=== PATIENT | male | born 1980 | race Caucasian/White ===

== ENCOUNTER 2021-12-27 07:55 | Emergency (ER) | payer BC ==
[~2021-12-27] VITALS: Ht 170.2 cm; Wt 122.0 kg
[2021-12-27 08:03] VITALS: BP 142/100
[2021-12-27] MEDS ORDERED: HYDROcodone/APAP 5/325MG 1 TAB TABLET PO ONE (08:15)
[2021-12-27] MEDS ORDERED: ONDANSETRON ODT 4 MG TAB.RAPDIS. PO ONE (08:15)
--- NOTE | 2021-12-27 08:57 | RAD ---
Right shoulder 3 views 12/27/2021. Reason for exam: Pain. No history of injury is given. No fracture or dislocation is seen. There is no apparent joint narrowing or destructive process. IMPRESSION: No acute abnormality. AP view of the chest 12/27/2021. FINDINGS: Depth of inspiration is fairly shallow. No infiltrate or effusion is seen. Heart size is no rmal. IMPRESSION: No acute abnormality. Electronically signed by: Gentry Copeland Jr., MD (12/27/2021 8:54 AM) [id number]
[2021-12-27] MEDS ORDERED: CYCL5TAB PO (09:09)
[2021-12-27] MEDS ORDERED: IBUP-1060 PO (09:09)
--- NOTE | 2021-12-27 09:10 | PHYS DOC ---
Past Medical History Past Surgical History: No Surgical History Adult General Chief Complaint Chief Complaint: SHOULDER INJURY HPI HPI Patient is a 41 year old male with right shoulder pain that started this morning when patient woke up. He states that the pain has been a constant ache at the posterior aspect of the shoulder and running over the scapula. He has pain with range of motion, particularly with trying to attempt to raise his arm above his head. No weakness numbness or tingling. He does not have any history of trauma or overuse. He denies any chest pain or shortness of breath. No fever. Review of Systems Review of Systems Constitutional: Denies fever Eyes: Denies change in visual acuity or eye pain HENT: Denies sore throat Respiratory: Denies shortness of breath Cardiovascular: Denies chest pain GI: Denies abd pain : Denies dysuria Musculoskeletal: Denies back or extremity injury Integument: Denies rash or skin lesions Neurologic: Denies headache, focal weakness or sensory changes All other systems were reviewed and found to be within normal limits, except as documented in this note. Current Medications Current Medications Current Medications Medications (Trade) Dose Ordered Sig/Dary Start Time Stop Time Status Last Admin Dose Admin Acetaminophen/ Hydrocodone Bitart (Lortab 5/325) 2 tab 1X ONCE 12/27/21 08:15 12/27/21 08:26 DC 12/27/21 08:15 2 TAB Ondansetron HCl (Zofran Odt) 4 mg 1X ONCE 12/27/21 08:15 12/27/21 08:24 DC 12/27/21 08:15 4 MG Allergies Allergies Allergies Coded Allergies Type Severity Reaction Last Updated Verified Penicillins Allergy Intermediate 12/27/21 Yes aspirin Allergy Unknown 12/27/21 Yes morphine Allergy Unknown 12/27/21 Yes Physical Exam Physical Exam Constitutional: Well developed, well nourished, no acute distress, non-toxic appearance. HENT: Normocephalic, atraumatic, bilateral external ears normal, mucosa moist, nose normal. Eyes: EOMI, conjunctiva normal, no discharge. Neck: Normal range of motion, supple, no stridor, no meningeal signs. Cardiovascular: Regular rate and rhythm Lungs & Thorax: Bilateral breath sounds clear to auscultation Abdomen: Soft, no tenderness or obvious masses Skin: Warm, dry, no erythema, no rash. Extremities: No tenderness, no cyanosis, no clubbing, decreased range of motion with abduction and fore flexion of the right shoulder, no edema. Neurologic: Alert and oriented, normal motor function, normal sensory function, no focal deficits noted. Psychologic: Affect normal, judgement normal, mood normal. Current Patient Data Vital Signs Vital Signs Date Time Temp Pulse Resp B/P (MAP) Pulse Ox O2 Delivery O2 Flow Rate FiO2 12/27/21 08:15 Room Air 12/27/21 08:03 98.5 75 15 142/100 (114) 98 98.5 EKG EKG [] Radiology/Procedures Radiology/Procedures [] Impressions: PATIENT: MAI MARTINEZ EACCOUNT: [id number]#: [id number] : 1980 LOCATION: ER AGE: 41 SEX: M EXAM STATUS: REG ER ORD. PHYSICIAN: BITA SALDAÑA MD REASON: pain PROCEDURE: CHEST AP ONLY Right shoulder 3 views 12/27/2021. Reason for exam: Pain. No history of injury is given. No fracture or dislocation is seen. There is no apparent joint narrowing or destructive process. IMPRESSION: No acute abnormality. AP view of the chest 12/27/2021. FINDINGS: Depth of inspiration is fairly shallow. No infiltrate or effusion is seen. Heart size is normal. IMPRESSION: No acute abnormality. Electronically signed by: Alexandra Walter Jr., MD (12/27/2021 8:54 AM) [id number] DICTATED and SIGNED BY: ALEXANDRA WALTER Jr, MD DATE: 12/27/21 [id number] PATIENT: MAI MARTINEZ E ACCOUNT: [id number] : 1980 LOCATION: ER AGE: 41 SEX: M EXAM STATUS: REG ER ORD. PHYSICIAN: BITA SALDAÑA MD REASON: pain PROCEDURE: SHOULDER 2+V RIGHT Right shoulder 3 views 12/27/2021. Reason for exam: Pain. No history of injury is given. No fracture or dislocation is seen. There is no apparent joint narrowing or destructive process. IMPRESSION: No acute abnormality. AP view of the chest 12/27/2021. FINDINGS: Depth of inspiration is fairly shallow. No infiltrate or effusion is seen. Heart size is normal. IMPRESSION: No acute abnormality. Electronically signed by: Alexandra Walter Jr., MD (12/27/2021 8:54 AM) [id number] DICTATED and SIGNED BY: ALEXANDRA WALTER Jr, MD DATE: 12/27/21 [id number] Course & Med Decision Making Course & Med Decision Making Pertinent Labs and Imaging studies reviewed. (See chart for details) [] Is a 41-year-old male with shoulder and scapular pain on the right side without any history of injury or trauma. X-rays of the shoulder as well as AP of the chest were negative for any acute process. Patient will be placed in a sling and instructed to remain off work till Thursday. We will give him a prescription for Motrin and Flexeril, have him follow-up with his primary care physician, return to the emergency department if symptoms become worse or other concerns arise, he is stable for discharge at this time. Dragon Disclaimer Dragon Disclaimer This electronic medical record was generated, in whole or in part, using a voice recognition dictation system. Departure Departure Impression: Primary Impression: Shoulder pain, right Disposition: HOME / SELF CARE / HOMELESS Condition: STABLE Referrals: UNKNOWN PCP NAME (PCP) Patient Instructions: Shoulder Pain Scripts Ibuprofen (IBUPROFEN) 800 Mg Tablet 800 MG PO PRN TID PRN for PAIN, #20 TAB take with food or milk to avoid upsetting stomach Prov: BITA SALDAÑA MD 12/27/21 Cyclobenzaprine Hcl (CYCLOBENZAPRINE HCL) 5 Mg Tablet 5 MG PO PRN TID PRN for PAIN, #15 TAB Prov: BITA SALDAÑA MD 12/27/21 BITA SALDAÑA MD Dec 27, 2021 09:10
== END 2021-12-27 09:34 | disposition home or self-care (01) ==
LOC: ER 07:55
DX: M25.511 Pain in right shoulder (principal); Z88.0 Allergy status to penicillin; Z88.5 Allergy status to narcotic agent; Z88.6 Allergy status to analgesic agent
CPT/HCPCS: 71045; 73030; 99284